=== PATIENT | female | born 1945 | race Hispanic/Latino ===

== ENCOUNTER → 2017-12-16 | Outpatient (CLI) | payer OTHER ==
[~2017-12-16] MED LIST: ANTIBIOTIC PO; ASPI-1197 PO; ATOR-2 PO; LINA1TAB5 PO; LOSA50TA25 PO; METO50TA18 PO; OMEP20TA25 PO
== END | disposition home or self-care (01) ==
LOC: RAH 09:32
PROVIDERS: ATTEND Family Medicine
DX: Z12.31 Encounter for screening mammogram for malignant neoplasm of breast (principal)
CPT/HCPCS: 77067

== ENCOUNTER 2021-01-18 19:57 | Inpatient (IN) | payer OTHER ==
[~2021-01-18] VITALS: Ht 149.9 cm; Wt 55.7 kg
[~2021-01-18 19:57] MED LIST changes: -LOSA50TA25 PO; +LOSA50TA64 PO
[2021-01-18 21:17] LABS: BASOPHILS % (AUTO) 0.2 % (0.0-5.0); EOSINOPHILS % (AUTO) 0.7 % (0.0-8.0); HEMATOCRIT 39.7 % (36-48); LYMPHOCYTES % (AUTO) 18.7 % (21.0-51.0); MEAN CORPUSCULAR HEMOGLOBIN 31.5 pg (27.0-33.0); MEAN CORPUSCULAR HGB CONC 32.7 g/dL (32.0-36.0); MEAN CORPUSCULAR VOLUME 96.1 fL (79-99); MONOCYTES % (AUTO) 7.2 % (3.0-13.0); NEUTROPHILS % (AUTO) 72.7 % (40.0-77.0); PLATELET COUNT (AUTO) 214 K/uL (130-400); RED BLOOD CELL COUNT(AUTO) 4.13 MIL/uL (4.00-5.50); RED CELL DISTRIBUTION WIDTH 12.3 % (11.0-15.5); WHITE BLOOD COUNT (AUTO) 8.4 K/uL (4.8-10.8)
[2021-01-18 21:18] LABS: APPEARANCE,URINE Cloudy (CLEAR); BILIRUBIN,URINE Small (NEGATIVE); COLOR,URINE Orange (YELLOW); GLUCOSE, URINE (UA) Negative (NEGATIVE); KETONES,URINE Trace mg/dL (NEGATIVE); LEUKOCYTE ESTERASE ,URINE Moderate (NEGATIVE); NITRATE,URINE Negative (NEGATIVE); OCCULT BLOOD,URINE Negative (NEGATIVE); PROTEIN,URINE Trace mg/dL (NEGATIVE)
[2021-01-18 21:32] LABS: BACTERIA,URINE Few /HPF (None Seen); MUCUS,URINE Few LPF (None Seen); SQUAMOUS EPITHELIAL CELL,UR Few /HPF (0-2)
[2021-01-18 21:35] LABS: CARBON DIOXIDE 23 mmol/L (21-32); CHLORIDE 100 mmol/L (101-111); CREATININE 1.5 mg/dL (0.5-1.5); GLOMERULAR FILTR. RATE CALC 36 mL/min (>60); GLUCOSE,RANDOM 167 mg/dL (70-105); POTASSIUM 4.5 mmol/L (3.5-5.1); SODIUM SERUM 136 mmol/L (136-145); UREA NITROGEN, BLOOD 32 mg/dL (7-18)
[2021-01-18 21:40] LABS: ALANINE AMINOTRANSFERASE 27 U/L (12-78); ALBUMIN 3.7 g/dL (3.5-5.0); ASPARTATE AMINOTRANSFERASE 21 U/L (10-37); B-TYPE NATRIURETIC PEPTIDE 171 pg/mL (0-100); BILIRUBIN,TOTAL 0.7 mg/dL (0.2-1.0); CRP QUANTITATIVE < 2.00 mg/L (0.00-9.0); TOTAL PROTEIN, SERUM 8.4 g/dL (6.0-8.3)
[2021-01-18] MEDS ORDERED: ASPIRIN 325MG TAB PO ONE (22:00)
[2021-01-18] MEDS ORDERED: NITROGLYCERIN 1GM OINT 1 INCH/1GM TD ONE (22:00)
[2021-01-18] MEDS ORDERED: TELM20TA8 PO (23:03)
[2021-01-18] MEDS ORDERED: GLIM4TAB36 PO (23:03)
[2021-01-18] MEDS ORDERED: OMEP20CA12 PO (23:03)
[2021-01-18] MEDS ORDERED: METO50TA18 PO (23:03)
[2021-01-18] MEDS ORDERED: LINA1TAB5 PO (23:03)
[2021-01-18] MEDS ORDERED: SERT-438 PO (23:03)
[2021-01-18] MEDS ORDERED: ACETAMINOPHEN 325 MG TAB PO PRN (23:30)
[2021-01-18] MEDS ORDERED: GLUCAGON 1MG KIT 1 MG ML IM PRN (23:30)
[2021-01-18] MEDS ORDERED: MORPHINE 2 MG SYG IV PRN (23:30)
[2021-01-18] MEDS ORDERED: DEXTROSE 50%-WATER 50 ML DISP.SYRIN IV PRN (23:30)
[2021-01-18] MEDS ORDERED: HYDRALAZINE 20MG/ML VIAL IV PRN (23:30)
[2021-01-18] MEDS ORDERED: ZOLPIDEM TARTRATE 5 MG TAB PO PRN (23:30)
[2021-01-18] MEDS ORDERED: ONDANSETRON 4MG INJ IV PRN (23:30)
[2021-01-18] MEDS ORDERED: NITROGLYCERIN 0.4 MG SL TAB SL PRN (23:30)
[2021-01-19] VITALS (11 sets, daily range): BP systolic 124–167; BP diastolic 51–86
[2021-01-19] MEDS: 0.9%NACL 1000ML 1,000 ML IV SCH ×2 (00:01→12:50)
[2021-01-19 03:16] LABS: BASOPHILS % (AUTO) 0.4 % (0.0-5.0); HEMATOCRIT 36.1 % (36-48); LYMPHOCYTES % (AUTO) 23.3 % (21.0-51.0); MEAN CORPUSCULAR HGB CONC 33.5 g/dL (32.0-36.0); MEAN CORPUSCULAR VOLUME 95.5 fL (79-99); MONOCYTES % (AUTO) 8.2 % (3.0-13.0); NEUTROPHILS % (AUTO) 66.7 % (40.0-77.0); PLATELET COUNT (AUTO) 215 K/uL (130-400); RED BLOOD CELL COUNT(AUTO) 3.78 MIL/uL (4.00-5.50); RED CELL DISTRIBUTION WIDTH 12.2 % (11.0-15.5); WHITE BLOOD COUNT (AUTO) 7.8 K/uL (4.8-10.8)
[2021-01-19 03:31] LABS: ALBUMIN 3.1 g/dL (3.5-5.0); BILIRUBIN,TOTAL 0.7 mg/dL (0.2-1.0); CREATININE 1.3 mg/dL (0.5-1.5); TOTAL PROTEIN, SERUM 7.3 g/dL (6.0-8.3)
[2021-01-19] MEDS ORDERED: HEPARIN 5,000 UNIT VIAL IV ONE (04:00)
[2021-01-19] MEDS: HEPARIN 25,000 UNITS/250ML D5W 250 ML IV SCH ×2 (04:13→18:41)
[2021-01-19] MEDS: INSULIN HUMULIN R 100 UNIT/ML 3ML SQ SCH ×4 (05:59→21:51)
[2021-01-19] MEDS: FAMOTIDINE 20MG TAB PO SCH ×2 (08:47→21:48)
[2021-01-19] MEDS: METOPROLOL TARTRATE 50 MG TAB PO SCH ×2 (09:00→21:48)
[2021-01-19] MEDS ORDERED: HEPARIN 5,000 UNIT VIAL SQ SCH (09:00)
[2021-01-19] MEDS: ASPIRIN 81 MG EC TAB PO SCH (09:00)
[2021-01-19 10:39] LABS: PROTHROMBIN TIME 13.8 SEC (9.6-11.6)
[2021-01-19] MEDS ORDERED: NITROGLYCERIN 50MG VIAL IV ONE (10:45)
[2021-01-19] MEDS ORDERED: IOHEXOL 350 MG/ML 100ML INFUS..BTL IV ONE ×2 (10:45→11:33)
[2021-01-19] MEDS ORDERED: LIDOCAINE HCL 400MG/20ML VIAL ONE (10:45)
[2021-01-19] MEDS ORDERED: IOHEXOL-350 50ML VIAL IV ONE ×2 (10:45→11:13)
[2021-01-19 11:16] LABS: PARTIAL THROMBOPLASTIN TIME > 139.0 SEC (26.3-35.5)
[2021-01-19] MEDS ORDERED: MIDAZOLAM HCL 1 MG/ML 2ML VIAL ONE (11:22)
[2021-01-19] MEDS ORDERED: FENTANYL CITRATE PF 50 MCG/1 ML 2ML VIAL ONE (11:22)
[2021-01-19] MEDS ORDERED: PROTAMINE SULFATE 10 MG/ML 25ML VIAL IV ONE (12:02)
[2021-01-19] MEDS ORDERED: 0.9%NACL 1000ML 1,000 ML IV SCH (12:30)
[2021-01-19] MEDS: ISOSORBIDE MONO 30MG SR TAB PO SCH (16:50)
[2021-01-19] MEDS: PHARMACY COMMUNICATION MISC SCH (20:30)
[2021-01-19] MEDS: ATORVASTATIN 40 MG TABLET PO SCH (21:48)
[2021-01-20] VITALS: BP 109/40
[2021-01-20] MEDS: PHARMACY COMMUNICATION MISC SCH (00:30)
[2021-01-20] MEDS: 0.9%NACL 1000ML 1,000 ML IV SCH ×2 (02:10→15:30)
[2021-01-20 04:00] VITALS: BP 124/48
[2021-01-20] MEDS: INSULIN HUMULIN R 100 UNIT/ML 3ML SQ SCH ×4 (05:48→21:22)
[2021-01-20 06:49] LABS: BASOPHILS % (AUTO) 0.5 % (0.0-5.0); EOSINOPHILS % (AUTO) 0.6 % (0.0-8.0); HEMATOCRIT 33.8 % (36-48); LYMPHOCYTES % (AUTO) 27.3 % (21.0-51.0); MEAN CORPUSCULAR VOLUME 97.1 fL (79-99); MONOCYTES % (AUTO) 8.8 % (3.0-13.0); NEUTROPHILS % (AUTO) 62.5 % (40.0-77.0); PLATELET COUNT (AUTO) 219 K/uL (130-400); RED BLOOD CELL COUNT(AUTO) 3.48 MIL/uL (4.00-5.50); RED CELL DISTRIBUTION WIDTH 12.7 % (11.0-15.5); WHITE BLOOD COUNT (AUTO) 6.3 K/uL (4.8-10.8)
[2021-01-20 07:06] LABS: CREATININE 0.9 mg/dL (0.5-1.5); POTASSIUM 3.9 mmol/L (3.5-5.1)
[2021-01-20 07:31] VITALS: BP 160/60
[2021-01-20] MEDS: METOPROLOL TARTRATE 50 MG TAB PO SCH ×2 (09:55→20:57)
[2021-01-20] MEDS: ASPIRIN 81 MG EC TAB PO SCH (09:55)
[2021-01-20] MEDS: FAMOTIDINE 20MG TAB PO SCH ×2 (09:55→20:57)
[2021-01-20] MEDS: ISOSORBIDE MONO 30MG SR TAB PO SCH (09:58)
[2021-01-20 11:39] VITALS: BP 100/43
[2021-01-20 15:57] VITALS: BP 108/46
[2021-01-20 18:36] LABS: INR 0.99 (0.85-1.15); PROTHROMBIN TIME 10.8 SEC (9.6-11.6)
[2021-01-20 18:37] LABS: PARTIAL THROMBOPLASTIN TIME 64.9 SEC (26.3-35.5)
[2021-01-20 20:00] VITALS: BP 138/56
[2021-01-20] MEDS: ATORVASTATIN 40 MG TABLET PO SCH (20:57)
[2021-01-20] MEDS: HEPARIN 25,000 UNITS/250ML D5W 250 ML IV SCH (21:18)
[2021-01-21] VITALS (7 sets, daily range): BP systolic 127–175; BP diastolic 48–74
[2021-01-21 04:32] LABS: BASOPHILS % (AUTO) 0.3 % (0.0-5.0); EOSINOPHILS % (AUTO) 1.4 % (0.0-8.0); HEMATOCRIT 33.7 % (36-48); LYMPHOCYTES % (AUTO) 31.9 % (21.0-51.0); MEAN CORPUSCULAR HEMOGLOBIN 30.8 pg (27.0-33.0); MEAN CORPUSCULAR HGB CONC 31.5 g/dL (32.0-36.0); MONOCYTES % (AUTO) 9.6 % (3.0-13.0); NEUTROPHILS % (AUTO) 56.5 % (40.0-77.0); PLATELET COUNT (AUTO) 196 K/uL (130-400); RED BLOOD CELL COUNT(AUTO) 3.44 MIL/uL (4.00-5.50); RED CELL DISTRIBUTION WIDTH 12.7 % (11.0-15.5); WHITE BLOOD COUNT (AUTO) 6.6 K/uL (4.8-10.8)
[2021-01-21 04:43] LABS: PROTHROMBIN TIME 10.9 SEC (9.6-11.6)
[2021-01-21 04:45] LABS: PARTIAL THROMBOPLASTIN TIME 64.9 SEC (26.3-35.5)
[2021-01-21 04:48] LABS: HEMOGLOBIN A1C 8.3 % (4.0-6.0)
[2021-01-21 04:50] LABS: ALBUMIN 2.7 g/dL (3.5-5.0); BILIRUBIN,TOTAL 0.6 mg/dL (0.2-1.0); CREATININE 0.9 mg/dL (0.5-1.5); MAGNESIUM 1.8 mg/dL (1.80-2.40); PHOSPHORUS 3.8 mg/dL (2.5-4.9); POTASSIUM 3.8 mmol/L (3.5-5.1); TOTAL PROTEIN, SERUM 6.4 g/dL (6.0-8.3)
[2021-01-21] MEDS: INSULIN HUMULIN R 100 UNIT/ML 3ML SQ SCH ×4 (05:53→21:49)
[2021-01-21] MEDS: METOPROLOL TARTRATE 50 MG TAB PO SCH ×2 (09:47→21:48)
[2021-01-21] MEDS: ASPIRIN 81 MG EC TAB PO SCH (09:47)
[2021-01-21] MEDS: FAMOTIDINE 20MG TAB PO SCH ×2 (09:47→21:47)
[2021-01-21] MEDS: ISOSORBIDE MONO 30MG SR TAB PO SCH (09:47)
[2021-01-21] MEDS: ATORVASTATIN 40 MG TABLET PO SCH (21:47)
[2021-01-22] VITALS (28 sets, daily range): BP systolic 108–167; BP diastolic 45–85
[2021-01-22 04:34] LABS: HEMATOCRIT 31.8 % (36-48); MEAN CORPUSCULAR HEMOGLOBIN 31.3 pg (27.0-33.0); MEAN CORPUSCULAR HGB CONC 32.4 g/dL (32.0-36.0); MEAN CORPUSCULAR VOLUME 96.7 fL (79-99); RED BLOOD CELL COUNT(AUTO) 3.29 MIL/uL (4.00-5.50); RED CELL DISTRIBUTION WIDTH 12.6 % (11.0-15.5); WHITE BLOOD COUNT (AUTO) 7.3 K/uL (4.8-10.8)
[2021-01-22 04:51] LABS: INR 1.01 (0.85-1.15)
[2021-01-22 04:57] LABS: ALBUMIN 2.6 g/dL (3.5-5.0); BILIRUBIN,TOTAL 0.5 mg/dL (0.2-1.0); CREATININE 0.8 mg/dL (0.5-1.5); POTASSIUM 3.9 mmol/L (3.5-5.1); TOTAL PROTEIN, SERUM 6.1 g/dL (6.0-8.3)
[2021-01-22 05:22] LABS: PARTIAL THROMBOPLASTIN TIME 90.7 SEC (26.3-35.5)
[2021-01-22] MEDS: INSULIN HUMULIN R 100 UNIT/ML 3ML SQ SCH ×2 (06:12→11:30)
[2021-01-22] MEDS ORDERED: AMINOCAPROIC ACID 5,000MG VIAL 15,000 MG in 0.9% NACL 500ML IV.SOLN 420 ML IV PRN (07:30)
[2021-01-22] MEDS ORDERED: EPINEPHRINE PF 1MG AMP 10 MG in 0.9% NACL 250ML 240 ML IV PRN (07:30)
[2021-01-22] MEDS ORDERED: NOREPINEPHRINE BITARTRATE 8 MG in DEXTROSE 5%-WATER 250 ML IV PRN (07:30)
[2021-01-22] MEDS: PHARMACY COMMUNICATION MISC SCH ×3 (08:30→20:30)
[2021-01-22] MEDS: CEFTRIAXONE 1G VIAL IVP SCH (08:33)
[2021-01-22] MEDS: 0.9%NACL 1000ML 1,000 ML IV SCH ×2 (08:33→11:40)
[2021-01-22] MEDS: METOPROLOL TARTRATE 50 MG TAB PO SCH (08:33)
[2021-01-22] MEDS: ASPIRIN 81 MG EC TAB PO SCH (08:34)
[2021-01-22] MEDS: FAMOTIDINE 20MG TAB PO SCH ×2 (08:34→21:00)
[2021-01-22] MEDS ORDERED: LOSARTAN 50 MG TABLET PO SCH (09:00)
[2021-01-22] MEDS ORDERED: CEFAZOLIN SODIUM 1 GM VIAL ONE ×2 (13:11→14:33)
[2021-01-22] MEDS ORDERED: PAPAVERINE HCL 30 MG/ML 2ML VIAL ONE (13:11)
[2021-01-22] MEDS ORDERED: NITROGLYCERIN 50MG/D5W 250ML 1 BOT ONE (13:40)
[2021-01-22] MEDS ORDERED: ROCURONIUM BROMIDE 10MG/1ML 5ML VL ONE (13:55)
[2021-01-22] MEDS ORDERED: FENTANYL CITRATE PF 50 MCG/1 ML 20ML VIAL IJ ONE (14:17)
[2021-01-22] MEDS ORDERED: ESMOLOL HCL 10 MG/ML 10 ML VIAL ONE (14:17)
[2021-01-22] MEDS ORDERED: PROTAMINE SULFATE 10 MG/ML 25ML VIAL IV ONE (14:17)
[2021-01-22] MEDS ORDERED: HEPARIN 10,000 UNIT/10ML (1,000 UNIT/ML) VIAL ONE (14:17)
[2021-01-22] MEDS ORDERED: LIDOCAINE PF 100MG/5ML (2%) SYRINGE 5ML ONE (14:17)
[2021-01-22] MEDS ORDERED: NOREPINEPHRINE BITARTRATE 1 MG/1 ML ML IV ONE (14:17)
[2021-01-22] MEDS ORDERED: PROPOFOL 10 MG/ML 20ML VIAL IV ONE (14:17)
[2021-01-22] MEDS ORDERED: AMINOCAPROIC ACID 5,000MG VIAL ONE (14:17)
[2021-01-22] MEDS ORDERED: EPINEPHRINE PF 1MG AMP ONE (14:17)
[2021-01-22] MEDS ORDERED: ROCURONIUM 10MG/1ML SYR 10 MG/ML ML ONE ×2 (14:18→16:33)
[2021-01-22] MEDS ORDERED: ETOMIDATE 20MG VIAL ONE (14:18)
[2021-01-22] MEDS ORDERED: CEFAZOLIN SODIUM 1 GM VIAL IVP ONE ×2 (14:40)
[2021-01-22] MEDS ORDERED: AMIODARONE 150MG VIAL ONE (14:54)
[2021-01-22] MEDS ORDERED: VASOPRESSIN 20 UNITS/ML 1ML VIAL ONE (14:57)
[2021-01-22 15:04] LABS: ABG BASE EXCESS -2.5 mmol/L (-2.0-3.0); ABG HCO3 22.3 mmol/L (21.0-28.0); ABG OXYGEN SATURATION 99.4 % (95.0-99.0); ABG PCO2 39 mmHg (32-45)
[2021-01-22] MEDS ORDERED: MIDAZOLAM HCL 1 MG/ML 2ML VIAL ONE (16:45)
[2021-01-22] MEDS ORDERED: KETAMINE HCL 100 MG/ML 5ML VIAL IJ ONE (17:11)
[2021-01-22 17:34] LABS: ABG BASE EXCESS -9.5 mmol/L (-2.0-3.0); ABG HCO3 15.6 mmol/L (21.0-28.0); ABG OXYGEN SATURATION 99.5 % (95.0-99.0); ABG PCO2 32 mmHg (32-45)
[2021-01-22] MEDS ORDERED: CALCIUM GLUC 1GM 1 GM in 0.9%NACL 50ML 50 ML IV PRN (18:00)
[2021-01-22] MEDS ORDERED: 0.9% NACL 500ML IV.SOLN 500 ML IV SCH (18:00)
[2021-01-22] MEDS ORDERED: 0.9%NACL 1000ML 1,000 ML IV SCH (18:00)
[2021-01-22] MEDS ORDERED: INSULIN REGULAR, HUMAN 3ML 100 UNIT in 0.9%NACL 100ML 99 ML IV SCH ×2 (18:00)
[2021-01-22] MEDS ORDERED: POTASSIUM PHOS 15 mMOL+NS250ML 250 ML IV PRN (18:00)
[2021-01-22] MEDS ORDERED: MORPHINE 2 MG SYG IV PRN (18:00)
[2021-01-22] MEDS ORDERED: NITROGLYCERIN 50MG/D5W 250ML 250 BOT IV SCH (18:00)
[2021-01-22] MEDS ORDERED: MORPHINE 4 MG SYG IV PRN (18:00)
[2021-01-22] MEDS ORDERED: PROPOFOL 1000 MG/100 ML 100 ML IV PRN (18:00)
[2021-01-22] MEDS ORDERED: EPINEPHRINE PF 1MG AMP 10 MG in DEXTROSE 5%-WATER 250 ML IV PRN (18:00)
[2021-01-22] MEDS ORDERED: ASPIRIN 81MG CHEW TAB NG ONE (18:00)
[2021-01-22] MEDS ORDERED: AMINOCAPROIC ACID 5,000MG VIAL 15,000 MG in 0.9% NACL 250ML 250 ML IV SCH (18:00)
[2021-01-22] MEDS ORDERED: NOREPINEPHRIN 4MG/NS 250ML 250 ML IV PRN (18:00)
[2021-01-22] MEDS ORDERED: 0.9%NACL 10ML VIAL IVP PRN (18:00)
[2021-01-22] MEDS ORDERED: GLUCAGON 1MG KIT 1 MG ML IM PRN (18:00)
[2021-01-22] MEDS ORDERED: SODIUM BICARB 50MEQ 50ML VIAL IV PRN (18:00)
[2021-01-22] MEDS ORDERED: ONDANSETRON 4MG INJ IV PRN (18:00)
[2021-01-22] MEDS ORDERED: ALBUMIN (HUMAN) 5% 250 ML IV PRN (18:00)
[2021-01-22] MEDS ORDERED: DEXTROSE 50%-WATER 50 ML DISP.SYRIN IV PRN (18:00)
[2021-01-22] MEDS ORDERED: ACETAMINOPHEN 650 MG SUPPOSITORY RC PRN (18:00)
[2021-01-22 18:22] LABS: ABG BASE EXCESS 2.5 mmol/L (-2.0-3.0); ABG HCO3 26.2 mmol/L (21.0-28.0); ABG OXYGEN SATURATION 97.2 % (95.0-99.0); ABG PCO2 37 mmHg (32-45)
[2021-01-22 18:31] LABS: MEAN CORPUSCULAR HEMOGLOBIN 30.9 pg (27.0-33.0); MEAN CORPUSCULAR HGB CONC 32.8 g/dL (32.0-36.0); MEAN CORPUSCULAR VOLUME 94.5 fL (79-99); RED BLOOD CELL COUNT(AUTO) 3.07 MIL/uL (4.00-5.50); RED CELL DISTRIBUTION WIDTH 12.7 % (11.0-15.5); WHITE BLOOD COUNT (AUTO) 18.8 K/uL (4.8-10.8)
[2021-01-22] MEDS: POTASSIUM CHLORIDE 20MEQ/100ML 100 ML IV PRN ×4 (18:43→22:45)
[2021-01-22 18:44] LABS: INR 1.09 (0.85-1.15); PROTHROMBIN TIME 11.8 SEC (9.6-11.6)
[2021-01-22 18:45] LABS: PARTIAL THROMBOPLASTIN TIME 21.7 SEC (26.3-35.5)
[2021-01-22 18:46] LABS: CREATININE 0.9 mg/dL (0.5-1.5); MAGNESIUM 1.1 mg/dL (1.80-2.40); PHOSPHORUS 4.3 mg/dL (2.5-4.9)
[2021-01-22 18:52] LABS: POTASSIUM 2.9 mmol/L (3.5-5.1)
[2021-01-22] MEDS ORDERED: ASPIRIN 81MG CHEW TAB ONE (19:10)
[2021-01-22 19:33] LABS: ABG BASE EXCESS -0.4 mmol/L (-2.0-3.0); ABG HCO3 23.8 mmol/L (21.0-28.0); ABG PCO2 37 mmHg (32-45)
[2021-01-22] MEDS: MAGNESIUM 2GM PREMIX 50ML 50 ML IV PRN (19:53)
[2021-01-22 20:23] LABS: ABG BASE EXCESS -1.8 mmol/L (-2.0-3.0); ABG HCO3 22.2 mmol/L (21.0-28.0); ABG OXYGEN SATURATION 98.3 % (95.0-99.0); ABG PCO2 35 mmHg (32-45)
[2021-01-22] MEDS: FAMOTIDINE 20MG VIAL IV SCH (21:09)
[2021-01-22] MEDS: ATORVASTATIN 40 MG TABLET PO SCH (21:09)
[2021-01-22 21:36] LABS: ABG BASE EXCESS -1.5 mmol/L (-2.0-3.0); ABG OXYGEN SATURATION 98.1 % (95.0-99.0); ABG PCO2 38 mmHg (32-45)
[2021-01-22 22:39] LABS: ABG BASE EXCESS 1.3 mmol/L (-2.0-3.0); ABG HCO3 25.4 mmol/L (21.0-28.0); ABG OXYGEN SATURATION 98.4 % (95.0-99.0); ABG PCO2 38 mmHg (32-45)
[2021-01-22] MEDS: CEFAZOLIN SODIUM 1 GM VIAL IV SCH (22:48)
[2021-01-22 23:51] LABS: ABG BASE EXCESS -0.1 mmol/L (-2.0-3.0); ABG HCO3 23.6 mmol/L (21.0-28.0); ABG OXYGEN SATURATION 97.7 % (95.0-99.0); ABG PCO2 35 mmHg (32-45)
[2021-01-22 23:56] LABS: ABG HCO3 25.8 mmol/L (21.0-28.0); ABG OXYGEN SATURATION 97.8 % (95.0-99.0); ABG PCO2 38 mmHg (32-45)
[2021-01-23] VITALS (18 sets, daily range): BP systolic 98–156; BP diastolic 37–65
[2021-01-23] MEDS: PHARMACY COMMUNICATION MISC SCH ×6 (00:30→20:30)
[2021-01-23 01:20] LABS: ABG BASE EXCESS 1.1 mmol/L (-2.0-3.0); ABG HCO3 25.1 mmol/L (21.0-28.0); ABG OXYGEN SATURATION 97.2 % (95.0-99.0); ABG PCO2 38 mmHg (32-45)
[2021-01-23] MEDS: POTASSIUM CHLORIDE 20MEQ/100ML 100 ML IV PRN (01:48)
[2021-01-23 03:58] LABS: ABG BASE EXCESS 0.6 mmol/L (-2.0-3.0); ABG HCO3 24.9 mmol/L (21.0-28.0); ABG OXYGEN SATURATION 96.3 % (95.0-99.0); ABG PCO2 38 mmHg (32-45)
[2021-01-23 04:11] LABS: BASOPHILS % (AUTO) 0.1 % (0.0-5.0); HEMATOCRIT 28.8 % (36-48); LYMPHOCYTES % (AUTO) 3.7 % (21.0-51.0); MEAN CORPUSCULAR HEMOGLOBIN 31.1 pg (27.0-33.0); MEAN CORPUSCULAR HGB CONC 32.6 g/dL (32.0-36.0); MEAN CORPUSCULAR VOLUME 95.4 fL (79-99); MONOCYTES % (AUTO) 7.8 % (3.0-13.0); NEUTROPHILS % (AUTO) 87.8 % (40.0-77.0); PLATELET COUNT (AUTO) 194 K/uL (130-400); RED BLOOD CELL COUNT(AUTO) 3.02 MIL/uL (4.00-5.50); RED CELL DISTRIBUTION WIDTH 12.8 % (11.0-15.5); WHITE BLOOD COUNT (AUTO) 13.4 K/uL (4.8-10.8)
[2021-01-23 04:21] LABS: INR 1.02 (0.85-1.15); PROTHROMBIN TIME 11.1 SEC (9.6-11.6)
[2021-01-23 04:22] LABS: CREATININE 1.1 mg/dL (0.5-1.5); MAGNESIUM 1.9 mg/dL (1.80-2.40); PARTIAL THROMBOPLASTIN TIME 23.5 SEC (26.3-35.5); PHOSPHORUS 2.4 mg/dL (2.5-4.9); POTASSIUM 4.4 mmol/L (3.5-5.1)
[2021-01-23] MEDS: CEFAZOLIN SODIUM 1 GM VIAL IV SCH ×2 (05:58→14:12)
[2021-01-23] MEDS: TRAMADOL HCL 50 MG TABLET PO PRN (06:26)
[2021-01-23] MEDS: MAGNESIUM 2GM PREMIX 50ML 50 ML IV PRN (06:43)
[2021-01-23] MEDS: FAMOTIDINE 20MG TAB PO SCH ×2 (09:00→19:48)
[2021-01-23] MEDS: FUROSEMIDE 20MG VIAL IV SCH ×2 (09:00→19:49)
[2021-01-23] MEDS: FAMOTIDINE 20MG VIAL IV SCH (09:00)
[2021-01-23] MEDS: ASPIRIN 81 MG EC TAB PO SCH (09:00)
[2021-01-23] MEDS: CEFTRIAXONE 1G VIAL IVP SCH (09:00)
[2021-01-23] MEDS ORDERED: IPRATROPIUM/ALBUTEROL SULFATE 3 ML SOLUTION IH PRN (19:30)
[2021-01-23] MEDS: ATORVASTATIN 40 MG TABLET PO SCH (19:48)
[2021-01-23] MEDS: ACETAMINOPHEN 325 MG TAB PO PRN (19:49)
[2021-01-24] VITALS (31 sets, daily range): BP systolic 95–169; BP diastolic 37–59
[2021-01-24] MEDS: PHARMACY COMMUNICATION MISC SCH ×6 (00:30→20:53)
[2021-01-24] MEDS: TRAMADOL HCL 50 MG TABLET PO PRN ×2 (02:22→19:50)
[2021-01-24 04:36] LABS: HEMATOCRIT 27.3 % (36-48); MEAN CORPUSCULAR HEMOGLOBIN 31.5 pg (27.0-33.0); MEAN CORPUSCULAR HGB CONC 32.2 g/dL (32.0-36.0); MEAN CORPUSCULAR VOLUME 97.8 fL (79-99); RED BLOOD CELL COUNT(AUTO) 2.79 MIL/uL (4.00-5.50); RED CELL DISTRIBUTION WIDTH 13.2 % (11.0-15.5); WHITE BLOOD COUNT (AUTO) 14.3 K/uL (4.8-10.8)
[2021-01-24 04:46] LABS: CREATININE 0.9 mg/dL (0.5-1.5); POTASSIUM 3.6 mmol/L (3.5-5.1)
[2021-01-24] MEDS: POTASSIUM CHLORIDE 20MEQ/100ML 100 ML IV PRN ×3 (05:32→08:52)
[2021-01-24] MEDS: INSULIN HUMULIN R 100 UNIT/ML 3ML SQ SCH ×4 (05:39→19:51)
[2021-01-24] MEDS: CEFTRIAXONE 1G VIAL IVP SCH (08:52)
[2021-01-24] MEDS: ASPIRIN 81 MG EC TAB PO SCH (08:52)
[2021-01-24] MEDS: FAMOTIDINE 20MG TAB PO SCH ×2 (08:52→19:50)
[2021-01-24] MEDS: FUROSEMIDE 20 MG TABLET PO SCH ×2 (08:52→16:51)
[2021-01-24] MEDS: METOPROLOL TARTRATE 25 MG TAB PO SCH ×2 (08:52→19:51)
[2021-01-24] MEDS: ATORVASTATIN 40 MG TABLET PO SCH (19:50)
[2021-01-25] VITALS (34 sets, daily range): BP systolic 106–159; BP diastolic 37–84
[2021-01-25 04:54] LABS: HEMATOCRIT 29.5 % (36-48); MEAN CORPUSCULAR HEMOGLOBIN 31.2 pg (27.0-33.0); MEAN CORPUSCULAR HGB CONC 33.2 g/dL (32.0-36.0); MEAN CORPUSCULAR VOLUME 93.9 fL (79-99); RED BLOOD CELL COUNT(AUTO) 3.14 MIL/uL (4.00-5.50); RED CELL DISTRIBUTION WIDTH 14.3 % (11.0-15.5); WHITE BLOOD COUNT (AUTO) 10.5 K/uL (4.8-10.8)
[2021-01-25 05:03] LABS: CREATININE 0.8 mg/dL (0.5-1.5); POTASSIUM 3.7 mmol/L (3.5-5.1)
[2021-01-25] MEDS: POTASSIUM CHLORIDE 20MEQ/100ML 100 ML IV PRN ×2 (05:18→06:39)
[2021-01-25] MEDS: INSULIN HUMULIN R 100 UNIT/ML 3ML SQ SCH ×4 (05:29→20:39)
[2021-01-25] MEDS: PHARMACY COMMUNICATION MISC SCH ×3 (08:30→12:54)
[2021-01-25] MEDS: ENOXAPARIN SODIUM 30 MG/0.3 ML SQ SCH (08:56)
[2021-01-25] MEDS: METOPROLOL TARTRATE 25 MG TAB PO SCH ×2 (08:56→20:37)
[2021-01-25] MEDS: FAMOTIDINE 20MG TAB PO SCH ×2 (08:56→20:36)
[2021-01-25] MEDS: CEFTRIAXONE 1G VIAL IVP SCH (08:56)
[2021-01-25] MEDS: ASPIRIN 81 MG EC TAB PO SCH (08:56)
[2021-01-25] MEDS: FUROSEMIDE 20 MG TABLET PO SCH ×2 (08:56→17:25)
[2021-01-25] MEDS: ATORVASTATIN 40 MG TABLET PO SCH (20:36)
[2021-01-26] VITALS (12 sets, daily range): BP systolic 96–149; BP diastolic 44–78
[2021-01-26 03:54] LABS: BASOPHILS % (AUTO) 0.2 % (0.0-5.0); EOSINOPHILS % (AUTO) 1.3 % (0.0-8.0); HEMATOCRIT 32.1 % (36-48); LYMPHOCYTES % (AUTO) 13.4 % (21.0-51.0); MEAN CORPUSCULAR HEMOGLOBIN 30.6 pg (27.0-33.0); MEAN CORPUSCULAR VOLUME 92.8 fL (79-99); MONOCYTES % (AUTO) 9.2 % (3.0-13.0); NEUTROPHILS % (AUTO) 75.4 % (40.0-77.0); PLATELET COUNT (AUTO) 184 K/uL (130-400); RED BLOOD CELL COUNT(AUTO) 3.46 MIL/uL (4.00-5.50); RED CELL DISTRIBUTION WIDTH 13.5 % (11.0-15.5); WHITE BLOOD COUNT (AUTO) 8.7 K/uL (4.8-10.8)
[2021-01-26 04:07] LABS: ALBUMIN 2.1 g/dL (3.5-5.0); BILIRUBIN,TOTAL 0.8 mg/dL (0.2-1.0); CREATININE 0.9 mg/dL (0.5-1.5); MAGNESIUM 1.8 mg/dL (1.80-2.40); PHOSPHORUS 2.9 mg/dL (2.5-4.9); POTASSIUM 3.7 mmol/L (3.5-5.1); TOTAL PROTEIN, SERUM 5.9 g/dL (6.0-8.3)
[2021-01-26] MEDS: TRAMADOL HCL 50 MG TABLET PO PRN ×2 (04:35→23:12)
[2021-01-26] MEDS ORDERED: POTASSIUM CHLORIDE 10% ELIXIR 20 MEQ/15 ML UDCUP PO PRN (07:30)
[2021-01-26] MEDS: INSULIN HUMULIN R 100 UNIT/ML 3ML SQ SCH ×4 (07:30→20:41)
[2021-01-26] MEDS: FAMOTIDINE 20MG TAB PO SCH ×2 (08:17→20:40)
[2021-01-26] MEDS: KCL 20 MEQ ERTAB PO PRN ×2 (08:17→10:21)
[2021-01-26] MEDS: ASPIRIN 81 MG EC TAB PO SCH (08:17)
[2021-01-26] MEDS: FUROSEMIDE 20 MG TABLET PO SCH ×2 (08:17→16:09)
[2021-01-26] MEDS: METOPROLOL TARTRATE 25 MG TAB PO SCH ×2 (08:17→20:40)
[2021-01-26] MEDS: CEFTRIAXONE 1G VIAL IVP SCH (08:17)
[2021-01-26] MEDS: ENOXAPARIN SODIUM 30 MG/0.3 ML SQ SCH (08:18)
[2021-01-26] MEDS: MAGNESIUM 2GM PREMIX 50ML 50 ML IV PRN (15:14)
[2021-01-26] MEDS: ATORVASTATIN 40 MG TABLET PO SCH (20:40)
[2021-01-27 04:13] LABS: CREATININE 0.9 mg/dL (0.5-1.5); MAGNESIUM 1.9 mg/dL (1.80-2.40); POTASSIUM 4.3 mmol/L (3.5-5.1)
[2021-01-27 04:45] VITALS: BP 116/66
[2021-01-27 07:58] VITALS: BP 160/69
[2021-01-27] MEDS: FUROSEMIDE 20 MG TABLET PO SCH ×2 (08:17→16:31)
[2021-01-27] MEDS: FAMOTIDINE 20MG TAB PO SCH ×2 (08:17→21:00)
[2021-01-27] MEDS: METOPROLOL TARTRATE 25 MG TAB PO SCH ×2 (08:17→21:01)
[2021-01-27] MEDS: ASPIRIN 81 MG EC TAB PO SCH (08:17)
[2021-01-27] MEDS: ENOXAPARIN SODIUM 30 MG/0.3 ML SQ SCH (08:18)
[2021-01-27 09:00] VITALS: BP 129/60
[2021-01-27 11:01] VITALS: BP 122/61
[2021-01-27] MEDS: INSULIN HUMULIN R 100 UNIT/ML 3ML SQ SCH ×3 (11:08→21:00)
[2021-01-27 16:13] VITALS: BP 108/54
[2021-01-27 20:06] VITALS: BP 137/90
[2021-01-27] MEDS: ATORVASTATIN 40 MG TABLET PO SCH (20:59)
[2021-01-27] MEDS: ACETAMINOPHEN 325 MG TAB PO PRN (21:00)
[2021-01-28 00:03] VITALS: BP 105/43
[2021-01-28 04:00] VITALS: BP 112/50
[2021-01-28 06:17] VITALS: BP 162/69
[2021-01-28] MEDS: INSULIN HUMULIN R 100 UNIT/ML 3ML SQ SCH ×2 (06:18→11:53)
[2021-01-28 08:00] VITALS: BP 132/64
[2021-01-28] MEDS: ASPIRIN 81 MG EC TAB PO SCH (08:13)
[2021-01-28] MEDS: FUROSEMIDE 20 MG TABLET PO SCH (08:14)
[2021-01-28] MEDS: FAMOTIDINE 20MG TAB PO SCH (08:14)
[2021-01-28] MEDS: METOPROLOL TARTRATE 25 MG TAB PO SCH (08:14)
[2021-01-28] MEDS: ENOXAPARIN SODIUM 30 MG/0.3 ML SQ SCH (08:15)
[2021-01-28 12:00] VITALS: BP 107/53
[2021-01-28] MEDS ORDERED: ATOR40TA69 PO (13:40)
[2021-01-28] MEDS ORDERED: METO25 PO (13:40)
[2021-01-28] MEDS ORDERED: AEC81 PO (13:40)
[2021-01-28] MEDS ORDERED: FURO20TA6 PO (13:40)
== END 2021-01-28 15:57 | DRG 233 ==
LOC: EDH 19:57 → EDHIP 23:19 → OBSVTOIN 23:19 → 3DH 01-19 03:45 → 4DH 01-19 13:34 → 2CV 01-22 17:40 → 2CH 01-23 06:20 → 2DH 01-26 04:24
PROVIDERS: ADMIT Internal Medicine Critical Care Medicine; ATTEND Internal Medicine Critical Care Medicine
PROC: 4A023N7 Measurement of Cardiac Sampling and Pressure, Left Heart, Percutaneous Approach (ICD-10-PCS; 2021-01-19)
PROC: B2111ZZ Fluoroscopy of Multiple Coronary Arteries using Low Osmolar Contrast (ICD-10-PCS; 2021-01-19)
PROC: B2151ZZ Fluoroscopy of Left Heart using Low Osmolar Contrast (ICD-10-PCS; 2021-01-19)
PROC: B3101ZZ Fluoroscopy of Thoracic Aorta using Low Osmolar Contrast (ICD-10-PCS; 2021-01-19)
PROC: B41F1ZZ Fluoroscopy of Right Lower Extremity Arteries using Low Osmolar Contrast (ICD-10-PCS; 2021-01-19)
PROC: 06BQ4ZZ Excision of Left Saphenous Vein, Percutaneous Endoscopic Approach (ICD-10-PCS; 2021-01-22)
PROC: 02100A9 Bypass Coronary Artery, One Artery from Left Internal Mammary with Autologous Arterial Tissue, Open Approach (ICD-10-PCS; principal; 2021-01-22 14:18)
PROC: 021109W Bypass Coronary Artery, Two Arteries from Aorta with Autologous Venous Tissue, Open Approach (ICD-10-PCS; 2021-01-22 14:18)
PROC: 30233N1 Transfusion of Nonautologous Red Blood Cells into Peripheral Vein, Percutaneous Approach (ICD-10-PCS; 2021-01-24)
DX: I25.110 Atherosclerotic heart disease of native coronary artery with unstable angina pectoris (principal); E43 Unspecified severe protein-calorie malnutrition; I50.41 Acute combined systolic (congestive) and diastolic (congestive) heart failure; I16.1 Hypertensive emergency; E87.0 Hyperosmolality and hypernatremia; N39.0 Urinary tract infection, site not specified; I24.9 Acute ischemic heart disease, unspecified; I13.0 Hypertensive heart and chronic kidney disease with heart failure and stage 1 through stage 4 chronic kidney disease, or unspecified chronic kidney disease; E11.65 Type 2 diabetes mellitus with hyperglycemia; E11.22 Type 2 diabetes mellitus with diabetic chronic kidney disease; N18.30 Chronic kidney disease, stage 3 unspecified; R79.89 Other specified abnormal findings of blood chemistry; E78.5 Hyperlipidemia, unspecified; E78.00 Pure hypercholesterolemia, unspecified; E87.70 Fluid overload, unspecified; I77.1 Stricture of artery; F41.9 Anxiety disorder, unspecified; Z68.24 Body mass index [BMI] 24.0-24.9, adult; Z79.82 Long term (current) use of aspirin; Z79.84 Long term (current) use of oral hypoglycemic drugs; Z79.899 Other long term (current) drug therapy; Z90.49 Acquired absence of other specified parts of digestive tract; Z90.710 Acquired absence of both cervix and uterus
CPT/HCPCS: 36415; 71045; 78582; 80048; 80053; 80061; 81001; 82435; 82803; 82947; 82948; 83036; 83605; 83735; 83880; 84100; 84132; 84295; 84484; 85018; 85025; 85027; 85347; 85378; 85610; 85730; 86140; 86850; 86900; 86901; 86923; 87088; 93005; 93306; 93356; 93458; 93567; 93880; 94002; 94003; 94010; 94150; 94664; 97039; 99156; 99157; A7048; A9540; A9558; C1894; G0378; J0171; J0282; J0360; J0690; J0696; J1644; J1650; J1815; J1940; J2001; J2250; J2440; J2704; J2720; J3010; J3475; J3480; J3490; J7030; J7040; P9016; P9045; Q9967